=== PATIENT | female | born 1980 ===

== ENCOUNTER 2019-11-04 12:48 | Emergency (ER) | payer MEDICAID ==
[~2019-11-04] VITALS: Ht 170.2 cm; Wt 58.7 kg
[2019-11-04 12:58] VITALS: BP 116/89
[2019-11-04] MEDS ORDERED: DIPHENHYDRAMINE 25MG CAPSULE PO ONE (14:45)
== END 2019-11-04 15:09 | disposition home or self-care (01) ==
LOC: ER 12:48
DX: T78.40XA Allergy, unspecified, initial encounter (principal); T16.2XXA Foreign body in left ear, initial encounter; F41.9 Anxiety disorder, unspecified; J44.9 Chronic obstructive pulmonary disease, unspecified; D57.1 Sickle-cell disease without crisis; F43.10 Post-traumatic stress disorder, unspecified; X58.XXXA Exposure to other specified factors, initial encounter; Y93.89 Activity, other specified; Y92.9 Unspecified place or not applicable; Z88.1 Allergy status to other antibiotic agents; Z88.4 Allergy status to anesthetic agent
CPT/HCPCS: 99282; Q0163